=== PATIENT | male | born 1960 | race Caucasian/White ===

== ENCOUNTER 2020-02-06 08:43 | Emergency (ER) | payer OTHER ==
[~2020-02-06] VITALS: Ht 165.1 cm; Wt 81.7 kg
[~2020-02-06 08:43] MED LIST: CARVEDILOL12.5 MG PO; LIPITOR 10 MG10 M1 PO; LISINOPRIL; VENTOLIN HFA 1818 GM INH; XANAX 1 MG TABLE1 MG PO
[2020-02-06] MEDS ORDERED: ASA81BEC PO (09:10)
[2020-02-06 09:13] LABS: URINE BILIRUBIN NEGATIVE (Negative); URINE BLOOD NEGATIVE (Negative); URINE CLARITY CLEAR; URINE COLOR YELLOW; URINE GLUCOSE-RANDOM NEGATIVE (Negative); URINE KETONES NEGATIVE (Negative); URINE LEUKOCYTES-REFLEX NEGATIVE (Negative); URINE NITRITE-REFLEX NEGATIVE (Negative); URINE PROTEIN 2+ (Negative); URINE SPECIFIC GRAVITY >= 1.030 (1.005-1.030); URINE UROBILINOGEN 0.2 E.U./dl (0.2-1.0)
[2020-02-06 09:14] LABS: ABSOLUTE BASOPHILS 0.1 thou/uL (0.0-0.2); ABSOLUTE EOSINOPHILS 0.3 thou/uL (0.0-0.7); ABSOLUTE LYMPHOCYTES 2.2 thou/uL (0.8-5.3); ABSOLUTE MONOCYTES 0.9 thou/uL (0.0-1.2); ABSOLUTE NEUTROPHILS 4.6 thou/uL (1.6-8.1); BASOPHILS 1.1 %; HEMATOCRIT 44.1 % (42.0-52.0); HEMOGLOBIN 15.5 gm/dL (14.0-18.0); LYMPHOCYTES 26.7 %; MCH 32.9 pg (26.0-34.0); MCHC 35.3 g/dL (28.0-37.0); MCV 93.4 fL (80.0-100.0); MONOCYTES 11.4 %; MPV 7.8 fl. (7.2-11.1); NUCLEATED RBCS 0 /100WBC; PLATELET COUNT* 254 thou/uL (150-400); POLYS 56.8 %; RBC 4.72 mil/uL (4.50-6.00); RDW-CV 13.3 % (10.5-14.5); WBC 8.2 thou/uL (4.0-11.0)
[2020-02-06 09:23] LABS: CALCIUM 9.2 mg/dL (8.5-10.1); CREATININE 1.2 mg/dL (0.6-1.3); POTASSIUM 4.6 mmol/L (3.5-5.1)
[2020-02-06 09:24] LABS: BACTERIA-REFLEX 1-9 Few /HPF (None Seen); CASTS None Seen /LPF (None Seen); CRYSTALS None Seen /LPF (None Seen); MUCUS None Seen strn/LPF (None Seen); SQUAMOUS 4-10 Moderate /LPF (0-3); URINE RBC 0-2 Rare /HPF (0-2); URINE WBC-REFLEX 0-5 Rare /HPF (0-5)
[2020-02-06 09:36] LABS: ALBUMIN 3.9 g/dL (3.4-5.0); TOTAL BILIRUBIN 0.6 mg/dL (<0.1-1.0); TOTAL PROTEIN 8.1 g/dL (6.4-8.2)
[2020-02-06] MEDS ORDERED: ZOFRAN ODT4 MG DISSOLVE (11:57)
[2020-02-06] MEDS ORDERED: FLOMAX0.4 MG PO (11:57)
[2020-02-06] MEDS ORDERED: NORCO 5-325 TA1 EAC1 PO (11:57)
[2020-02-06] MEDS ORDERED: IBUPROFEN 800800 M1 PO (11:57)
[2020-02-06 12:21] VITALS: BP 142/77
--- NOTE | 2020-02-06 16:30 | EKG ---
[place] [address] ELECTROCARDIOGRAM REPORT Name: MARILEE MONACO Room: [facility]#: [id number] Admission: 02/06/20 Attend Phys: Discharge: 02/06/20 Date of : 60 Date of Service: 02/06/20 0936 Report #: [id number] THIS REPORT FOR: //name// [facility] ED Test Date: 2020-02-06 Test Time: 09:36:31 Pat Name: MARILEE MONACO Department: Room: Gender: Line Cook: [place] : 1960 Requested By: Kev Wang Order Number: [id number] MD: Dru Rodriguez Measurements Intervals [place] Rate: 76 P: 40 ME: 158 QRS: -44 QRSD: 108 T: 175 QT: 376 QTc: 423 Interpretive Statements Sinus rhythm Left anterior fascicular block Abnormal R-wave progression, late transition Abnormal T, consider ischemia, lateral leads Compared to ECG 10/14/2013 12:27:38 Left anterior fascicular block now present Sinus arrhythmia no longer present T-wave abnormality still present Possible ischemia still present Electronically Signed On 02-06-2020 16:29:14 CDT by Dru Rodriguez [email or web address] <ELECTRONICALLY SIGNED> By: Dru Rodriguez MD, [facility] 02/06/20 1629 5 5 Dru Rodriguez MD, [facility] /EPI
== END 2020-02-06 12:21 | disposition home or self-care (01) ==
LOC: M.ERS 08:43
PROVIDERS: Emergency Medicine Emergency Medical Services
DX: N20.0 Calculus of kidney (principal); E78.5 Hyperlipidemia, unspecified; Z88.5 Allergy status to narcotic agent; Z90.49 Acquired absence of other specified parts of digestive tract